=== PATIENT | female | born 1980 | race American Indian/Alaskan Native ===

== ENCOUNTER 2017-02-08 12:46 | Emergency (ER) | payer MEDICAID, OTHER ==
[2017-02-08 13:39] VITALS: BP 108/80
== END 2017-02-08 17:21 | disposition left against medical advice (07) ==
LOC: ED 12:46
DX: M54.5 Low back pain (principal); V89.2XXA Person injured in unspecified motor-vehicle accident, traffic, initial encounter; Y92.488 Other paved roadways as the place of occurrence of the external cause; Y93.89 Activity, other specified; Y99.8 Other external cause status; Z53.21 Procedure and treatment not carried out due to patient leaving prior to being seen by health care provider